=== PATIENT | male | born 1960 | race Caucasian/White ===

== ENCOUNTER 2023-06-06 09:52 | Emergency (ER) | payer MEDICARE, SELFPAY ==
[2023-06-06 10:00] VITALS: BP 188/93
--- NOTE | 2023-06-06 12:48 | ED.MUSCINJ ---
HPI-Injury
General
Chief Complaint: Musculo-Skeletal Complaint
Source: patient
Time Seen by Provider: 06/06/23 12:13
Nursing documentation reviewed up to this point in time: agreed with
Travel History
Have you had any contact with someone who has COVID-19?: No
Do you have any symptoms of coronavirus? Fever > 100 degrees, chills, cough, shortness of breath, sore throat, loss of taste or smell, muscle aches, or headache?: No
History of Present Illness-Injury
Initial Injury comments:
63-year-old male presents with bilateral lower back pain left greater than right since helping his son move heavy furniture 5 days ago. He states after moving furniture he could barely walk the next day. He states he has been able to get up and
around but the pain is becoming worse daily and now he can barely walk again. He states the pain is mainly in the left lower back and radiates down the buttock and the posterior left thigh and sometimes down to his ankle. He states the right lower
back pain is less but it is starting to radiate down the back of his right thigh. He denies loss of bowel or bladder control. He denies numbness in the saddle area. He denies weakness in the legs.
Past History
Past History
ED Past Medical History: HTN
ED Past Surgical History: Bowel resection (Colon resection from traumatic fall)
Social History
Tobacco: Non-smoker
Personal:
Living: with family
Review of Systems
Review of Systems
Allergies reviewed?: Yes
All Other Systems: ROS reviewed and negative except as documented in HPI and ROS
Constitutional: Denies fever
Respiratory: Denies trouble breathing
Cardiac: Denies chest pain
ABD/GI: Denies abdominal pain
: Denies dysuria, incontinence, difficulty voiding or urgency
Musculoskeletal: Reports back pain
Skin: Reports no symptoms
Neurological: Reports no symptoms
Phy Exam
Physical Exam
Physical Exam:
GENERAL: No acute distress. A&Ox3.
CONSTITUTIONAL: Afebrile.
RESPIRATORY: Regular respirations, nonlabored, lungs clear.
CARDIOVASCULAR: Regular rate and rhythm, no murmurs, no rubs.
GI: Soft, tender bilateral lower lumbar soft tissues. No spinal bony tenderness. Nontender, normal BS
MUSCULOSKELETAL: Moves with difficulty due to back pain. Negative bilateral straight leg raise. Well perfused.
SKIN: Warm, dry, pink
PSYCH: Normal mood and affect. Well kept, interactive and appropriate
NEUROLOGIC: Awake, alert and oriented. No focal neurological deficits. Strength 5/5 throughout.
Injury Course
Orders/Labs/Results
Orders:
Orders
06/06/23 12:46
Diazepam [Valium] 5 mg PO NOW STA
06/06/23 12:47
Dexamethasone [Decadron] 10 mg PO NOW STA
Ketorolac [Toradol] 30 mg IM NOW STA
06/06/23 12:48
Lumbar Spine, 2 or 3 View [CR Lumbar Spine 2 Or 3 Views] Urgent
Comment:
Reason For Exam: low back pain with bilat sciatica posts lifting
MDM/Problems Addressed
Differential Diagnosis Includes:
lumbar strain/sprain, disc protrusion, sciatica
MDM/Problems Addressed:
63-year-old male presents with bilateral lower back pain left greater than right since helping his son move heavy furniture 5 days ago. He states after moving furniture he could barely walk the next day. He states he has been able to get up and
around but the pain is becoming worse daily and now he can barely walk again. He states the pain is mainly in the left lower back and radiates down the buttock and the posterior left thigh and sometimes down to his ankle. He states the right lower
back pain is less but it is starting to radiate down the back of his right thigh. He denies loss of bowel or bladder control. He denies numbness in the saddle area. He denies weakness in the legs.
06/06/2023 1412 PM
patient pain is improved after medications.
He has a prescheduled appointment with his primary doctor for tomorrow
Prescription for muscle relaxant Flexeril and short burst of prednisone sent to his pharmacy.
*Critical Care Note
Total Time (30-74mins, 75-104mins- exclusive of procedures): Not Applicable
ED Attending Note
-
Portions of this chart may have been created with voice recognition software.� Occasional wrong word or��sound alike� substitutions may have occurred due to the inherent limitations of voice recognition software.
Discharge Plan
Departure
Patient Disposition: Home (Routine Discharge)
Date of Disposition: 06/06/23
Time of Disposition: 14:13
Patient with high blood pressure during this ER visit?: Yes
Condition: Fair
Discharge Problem:
Acute lumbar myofascial strain, Sciatica
Instructions: Sciatica, Low Back Pain (DC), Back Exercises
Prescriptions:
New
cyclobenzaprine 10 mg tablet
10 mg PO TID PRN (Reason: muscle spasm) Qty: 20 0RF
prednisone 10 mg Tablet
See Rx Instructions .ROUTE .COMPLEX Qty: 30 0RF
Rx Instructions:
Take By Mouth:
40 mg daily x3 days, 30 mg daily x3 days,
20 mg daily x3 days, 10 mg daily x3 days.
Referrals:
Jose Jordan DO [Family Provider] - Keep scheduled appt
Activity Restrictions/Additional Instructions:
As we discussed, I sent a prescription to your pharmacy for Flexeril or cyclobenzaprine which is a muscle relaxant. This can make you sleepy and slow the reflexes so do not drive or operate any machinery within 8 hours of taking it.
I also sent a prescription to your pharmacy for a prednisone taper, pick it up and start it tomorrow as I gave you a dose of steroid here today
Keep your appointment tomorrow with your family doctor.
Interventions
Interventions:
*Risk Screen - Suicide Last Done: 06/06/23 10:00
*General Assessment Last Done: 06/06/23 11:29
*Neglect/Abuse Screening Last Done: 06/06/23 10:00
ED- Fall Risk Assessment Last Done: 06/06/23 11:29
*ED COVID-19 Vaccine History Last Done: 06/06/23 10:00
*Nursing Disposition Last Done: 06/06/23 14:31
ED-Musculoskeletal Assessment Last Done: 06/06/23 11:29
Discharge Date and Time
Discharge Date/Time: 06/06/23 14:32
[2023-06-06] MEDS: DECADRON 10 MG PO (13:02)
[2023-06-06] MEDS: VALIUM 5 MG PO (13:03)
[2023-06-06] MEDS: TORADOL 30 MG IM (13:03)
== END 2023-06-06 14:32 | disposition home or self-care (01) ==
LOC: EMR 09:52
PROVIDERS: EMERGENCY PHYSICIAN Emergency Medicine; FAMILY PHYSICIAN Family Medicine
DX: S39.012A Strain of muscle, fascia and tendon of lower back, initial encounter (principal); X58.XXXA Exposure to other specified factors, initial encounter; M54.42 Lumbago with sciatica, left side; I10 Essential (primary) hypertension
CPT/HCPCS: 99284; 96372; 72100